=== PATIENT | male | born 2005 | race Caucasian/White ===

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

== ENCOUNTER 2023-05-03 08:34 | Emergency (ER) | payer MEDICAID ==
--- NOTE | 2023-05-03 09:20 | ED Physician Documentation ---
PD HPI ABD PAIN - Stated complaint Stated Complaint: ABD PX - Chief complaint Chief Complaint: Abd Pain - History obtained from History obtained from: Patient - History of Present Illness Timing - onset: Enter time (183), Last night Timing - duration: Days (1) Timing - details: Gradual onset, Still present Quality: Sharp, Pain Location: RUQ Improved by: Laying still Worsened by: Eating, Moving, Breathing, Position, Palpation Associated symptoms: No: Fever, Nausea, Vomiting, Diarrhea, Constipation Similar symptoms before: No diagnosis (one time 3 months ago) Recently seen: Not recently seen - Additional information Additional information: 17-year-old male indicates that last night about 6:30 at night he developed pain in the right upper quadrant that his was sharp and persisted. He had persistence of these symptoms and tenderness. He is come to the emergency [facility] this morning for evaluation. Review of Systems Constitutional: denies: Fever Eyes: denies: Decreased vision Ears: denies: Ear pain Nose: denies: Rhinorrhea / runny nose, Congestion Throat: denies: Sore throat Cardiac: denies: Chest pain / pressure, Palpitations Respiratory: denies: Dyspnea, Cough GI: reports: Abdominal Pain. denies: Nausea, Vomiting, Constipation, Diarrhea : denies: Dysuria, Frequency PD PAST MEDICAL HISTORY - Past Medical History Past Medical History: Yes Respiratory: Asthma - Past Surgical History Past Surgical History: No - Present Medications Home Medications: Ambulatory Orders Medication Instructions Recorded Confirmed No Known Home Medications 05/03/23 05/03/23 - Allergies Allergies/Adverse Reactions: Allergies Allergy/AdvReac Type Severity Reaction Status Date / Time No Known Drug Allergies Allergy Verified 05/03/23 08:46 - Social History Does the pt smoke?: No Smoking Status: Never smoker Does the pt drink ETOH?: No Does the pt have substance abuse?: No - Immunizations Immunizations are current?: Yes - POLST Patient has POLST: No PD ED PE NORMAL - Vitals Vital signs reviewed: Yes (hypertensive ) - General General: Alert and oriented X 3, No acute distress, Well developed/nourished - HEENT HEENT: Atraumatic, PERRL, EOMI - Neck Neck: Supple, no meningeal sign, C-Spine cleared by NEXUS criteria - Respiratory Respiratory: No respiratory distress - Abdomen Abdomen: Normal bowel sounds, Soft, Non distended, No organomegaly, Other (specific RUQ tenderness, well localized, + bhakta's, POCUS with normal appearing distended gall bladder that is tender with 3mm wall. ) - Back Back: No CVA TTP, No spinal TTP - Derm Derm: Normal color, Warm and dry, No rash - Extremities Extremities: No deformity, No edema - Neuro Neuro: Alert and oriented X 3, plastic duplicator 2-12 intact, No motor deficit, No sensory deficit, Normal speech Eye Opening: Spontaneous Motor: Obeys Commands Verbal: Oriented GCS Score: 15 - Psych Psych: Normal mood, Normal affect Results - Vitals Vitals: Vital Signs - 24 hr 05/03/23 05/03/23 08:42 10:46 Temperature 36.9 C Heart Rate 98 69 Respiratory 20 16 Rate Blood Pressure 158/83 H 128/69 O2 Saturation 100 99 Oxygen O2 Source Room air - Labs Labs: Laboratory Tests 05/03/23 05/03/23 09:27 09:27 WBC 9.3 RBC 5.17 Hgb 15.2 Hct 46.5 MCV 89.9 MCH 29.4 MCHC 32.7 RDW 12.2 Plt Count 373 MPV 9.8 Neut # (Auto) 4.9 Lymph # (Auto) 3.1 [place] # (Auto) 0.8 Eos # (Auto) 0.4 Baso # (Auto) 0.0 Absolute Nucleated RBC 0.00 Nucleated RBC % 0.0 Sodium 138 Potassium 4.2 Chloride 100 L Carbon Dioxide 30 Anion Gap 8.0 BUN 12 Creatinine 1.1 Estimated GFR (MDRD) 86 L Glucose 90 Calcium 9.8 Total Bilirubin 0.3 AST 37 ALT 33 Alkaline Phosphatase 70 Total Protein 7.3 Albumin 4.2 Globulin 3.1 Albumin/Globulin Ratio 1.4 Lipase 31 Procedures - Bedside sono Bedside sono by EMP: With use of POCUS the right upper quadrant is imaged the patient is thin and images well. The gallbladder appears clear without obvious stone the gallbladde r is distended sonographically tender and without fluid or gallbladder wall thickening gallbladder wall is measured at 3 mm. PD Medical Decision Making - ED course Complexity details: reviewed results, re-evaluated patient, considered differential, d/w patient Reviewed Lab Results: We reviewed a complete blood cell count showing normal white blood cell count normal hemoglobin hematocrit and platelets and normal indices chemistries were equally normal with normal electrolytes normal kidney and liver function.These laboratory studies did not contribute to a specific diagnosis. They are reassuring for a benign process. ED course: 17-year-old male presents with right upper quadrant abdominal pain he is tender on examination has a positive Bhakta sign when he arrives POCUS does not demonstrate any evidence of stones or gallbladder wall thickening or pericholecystic fluid. A formal ultrasound is obtained which shows a normal gallbladder.The patient has spontaneous resolution of his pain. No pain medication is administered. This patient was specifically tender in the right upper quadrant on examination and now has resolution of his symptoms. Departure - Departure Disposition: 01 Home, Self Care Clinical Impression: Abdominal pain Qualifiers: Abdominal location: right upper quadrant Qualified Code(s): R10.11 - Right uppe r quadrant pain Condition: Stable Instructions: ED Abdominal Pain Unkn Cause Male Follow-Up: [facility] [Provider Group] Comments: Tae, today we did not find any abnormality to your liver function tests on your blood work your blood counts were normal and the ultrasound done formally was also normal. The expectation is resolution of your symptoms. We have provided a follow up doctor as needed. Forms: PCP List Discharge Date/Time: 05/03/23 11:15
[2023-05-03 09:31] LABS: BASOPHILS % (AUTO) 0.4 %; EOSINOPHILS # (AUTO) 0.4 10^3/uL (0.0-0.7); EOSINOPHILS % (AUTO) 4.2 %; HCT - HEMATOCRIT 46.5 % (42.0-52.0); HGB - HEMOGLOBIN 15.2 g/dL (14.0-18.0); LYMPHOCYTES # (AUTO) 3.1 10^3/uL (1.5-3.5); LYMPHOCYTES % (AUTO) 33.6 %; MEAN CORPUSCULAR HEMOGLOBIN 29.4 pg (27.0-31.0); MEAN CORPUSCULAR HGB CONC 32.7 g/dL (32.0-36.0); MEAN CORPUSCULAR VOLUME 89.9 fL (80.0-94.0); MEAN PLATELET VOLUME 9.8 fL (7.4-11.4); MONOCYTES # (AUTO) 0.8 10^3/uL (0.0-1.0); MONOCYTES % (AUTO) 8.8 %; NEUTROPHILS # (AUTO) 4.9 10^3/uL (1.5-6.6); NEUTROPHILS % (AUTO) 52.6 %; PLT - PLATELET COUNT 373 10^3/uL (130-450); RED BLOOD COUNT 5.17 10^6/uL (4.70-6.10); RED CELL DISTRIBUTION WIDTH 12.2 % (12.0-15.0); WHITE BLOOD COUNT 9.3 x10^3/uL (4.8-10.8)
[2023-05-03 10:19] LABS: ALBUMIN 4.2 g/dL (3.2-5.5); ALBUMIN/GLOBULIN RATIO 1.4 (1.0-2.2); BILIRUBIN,TOTAL 0.3 mg/dL (0.2-1.0); CALCIUM 9.8 mg/dL (8.5-10.3); CREATININE 1.1 mg/dL (0.6-1.3); POTASSIUM 4.2 mmol/L (3.5-4.5); TOTAL PROTEIN 7.3 g/dL (6.4-8.9)
--- NOTE | 2023-05-03 11:17 | Ultrasound Report ---
PROCEDURE: Abdomen Limited INDICATIONS: RUQ pain, ttp well localized, + rodgers's,-POCUS TECHNIQUE: Real-time focused scanning was performed of the abdomen, with image documentation. COMPARISONS: None. FINDINGS: Liver: Liver is normal in size and homogeneous in echotexture. Gallbladder: Unremarkable. Biliary ducts: Intrahepatic bile ducts are non-dilated. Extrahepatic bile duct caliber measures 3 m m. Normal is 6-7 mm or less in diameter, or 10 mm or less post-cholecystectomy. The middle portal v ein measured 1.2 cm with hepatopedal flow Pancreas: Visualized portions of the pancreas are sonographically normal. Right kidney: Normal in size and echotexture. Right kidney measures 10.1 cm long. No hydronephrosis or nephrolithiasis. No solid masses. No complex renal cystic lesions which require follow-up. Aorta: Visualized aorta is normal in caliber at less than 3 cm. IVC: Intrahepatic inferior vena cava is patent. Miscellaneous: Small amount of perihepatic ascites. IMPRESSION: Normal gallbladder and biliary duct. The middle portal vein measures 1.2 cm which can be a sign of portal hypertension. Small volume of ascites. Reviewed by: Mac Jeffers MD on 05/03/2023 10:15 AM [facility] Approved by: Mac Jeffers MD on 05/03/2023 10:15 AM [facility] Station ID: [id number]
[2023-05-03 11:20] VITALS: BP 128/69; O2SAT 99
== END 2023-05-03 11:15 | disposition home or self-care (01) ==
LOC: ED 08:34
DX: R10.11 Right upper quadrant pain (principal)
CPT/HCPCS: 36415; 80053; 83690; 85025; 99283; 99284

== ENCOUNTER 2023-05-08 11:49 | Outpatient (CLI) | payer MEDICAID ==
--- NOTE | 2023-05-08 14:21 | XRAY Report ---
PROCEDURE: Lumbar Spine 4V INDICATIONS: LOW BACK PAIN TECHNIQUE: 4 views of the lumbar spine were acquired. COMPARISON: Lumbar spine x-ray 06/15/2019 FINDINGS: Bones: 5 [id number] vertebrae are present. There is normal bony alignment. There appears to be a fracture of the anterior superior endplate of L4 which is not seen on prior x-ray 06/15/2019. No ve rtebral body compression fractures. No suspicious bony lesions. No definite pars interarticularis d efects. Soft tissues: Overlying bowel gas pattern is normal. No suspicious soft tissue calcifications. IMPRESSION: Fracture fragment adjacent to the anterior superior endplate of L4 which is not seen on prior x-ray. Correlate with history of trauma. No significant degenerative changes. Reviewed by: Donte Liu MD on 05/08/2023 2:19 PM PST Approved by: Donte Liu MD on 05/08/2023 2:19 PM PST Station ID: [id number]
== END 2023-05-08 11:50 | disposition home or self-care (01) ==
LOC: DI 11:49
PROVIDERS: ATTEND Nurse Practitioner Family
DX: M54.50 Low back pain, unspecified (principal); R93.7 Abnormal findings on diagnostic imaging of other parts of musculoskeletal system

== ENCOUNTER 2023-07-06 10:14 | Outpatient (CLI) | payer MEDICAID ==
--- NOTE | 2023-07-06 14:30 | MRI Report ---
PROCEDURE: Lumbar Spine WO INDICATIONS: HIST OF VERTEBRAL FX TECHNIQUE: Noncontrast sagittal T1 spin echo and T2 fast echo, sagittal STIR, axial T1 and T2 fast spin echo thr ough the lumbar spine. In cases with scoliosis, additional coronal T2 fast spin echo may be performe d. COMPARISON: 05/08/2023. FINDINGS: Image quality: Mild motion artifact. Alignment and Curvature: There is normal bony alignment. Bone Marrow: Again seen small fracture fragment adjacent to the anterior superior endplate of L4 with out associated edema. Marrow is of normal overall signal. No acute vertebral body compression fractu res. Spinal Cord: Conus medullaris terminates at the L1 level. Visualized cord demonstrates normal signa l and size. Paraspinous Soft Tissues: No paravertebral masses. T12-L1: Normal in appearance. L1-L2: Normal in appearance. L2-L3: Normal in appearance. L3-L4: Disc desiccation and height loss. Minimal disc bulge. Facet arthropathy and thickened ligame nta flava. Mild central canal stenosis. Mild bilateral neuroforaminal stenosis. L4-L5: Mild diffuse disc bulge. Facet arthropathy. Mild central canal stenosis. No neuroforaminal s tenosis. L5-S1: Facet arthropathy. No central canal or neuroforaminal stenosis. IMPRESSION: 1.Mild degenerative changes of the lumbar spine as described above. 2.Again seen chronic fracture deformity of the anterior superior endplate of L4. Reviewed by: Donte Liu MD on 07/06/2023 2:28 PM PDT Approved by: Donte Liu MD on 07/06/2023 2:28 PM PDT Station ID: [id number]
== END 2023-07-06 10:15 | disposition home or self-care (01) ==
LOC: DI 10:14
PROVIDERS: ATTEND Nurse Practitioner Family
DX: M47.816 Spondylosis without myelopathy or radiculopathy, lumbar region (principal); Z87.312 Personal history of (healed) stress fracture

== ENCOUNTER 2023-11-05 04:04 | Emergency (ER) | payer MEDICAID ==
[2023-11-05 04:32] LABS: BASOPHILS % (AUTO) 0.7 %; EOSINOPHILS % (AUTO) 2.5 %; HCT - HEMATOCRIT 45.5 % (42.0-52.0); HGB - HEMOGLOBIN 15.6 g/dL (14.0-18.0); LYMPHOCYTES % (AUTO) 51.1 %; MEAN CORPUSCULAR HEMOGLOBIN 30.4 pg (27.0-31.0); MEAN CORPUSCULAR HGB CONC 34.3 g/dL (32.0-36.0); MEAN CORPUSCULAR VOLUME 88.5 fL (80.0-94.0); MEAN PLATELET VOLUME 9.6 fL (7.4-11.4); MONOCYTES % (AUTO) 7.3 %; NEUTROPHILS % (AUTO) 38.2 %; PLT - PLATELET COUNT 333 10^3/uL (130-450); RED BLOOD COUNT 5.14 10^6/uL (4.70-6.10); RED CELL DISTRIBUTION WIDTH 11.6 % (12.0-15.0); WHITE BLOOD COUNT 10.5 x10^3/uL (4.8-10.8)
[2023-11-05 04:33] LABS: BILIRUBIN,URINE NEGATIVE (NEGATIVE); GLUCOSE, URINE (UA) NEGATIVE (NEGATIVE); KETONES,URINE (UA) NEGATIVE (NEGATIVE); LEUKOCYTE ESTERASE, URINE NEGATIVE (NEGATIVE); NITRITE,URINE NEGATIVE (NEGATIVE); OCCULT BLOOD,URINE NEGATIVE (NEGATIVE); PH,URINE 6.5 PH (5.0-7.5); PROTEIN,URINE NEGATIVE (NEGATIVE); UROBILINOGEN,URINE 0.2 (NORMAL) E.U./dL (NORMAL)
--- NOTE | 2023-11-05 04:33 | ED Physician Documentation ---
History of Present Illness - Stated complaint Stated Complaint: ABD PX - Chief complaint Chief Complaint: Abd Pain - History obtained from History obtained from: Patient - Additonal information Additional information: 17yM previously healthy p/w RUQ pain at breakfast yesterday, recurring throughout the day and into the early hours of this morning with associated nausea but no vomiting, fever/chills, diarrhea, or urinary sx. pain radiates to the back. patient had a normal workup for similar symptoms a few months ago, including ultrasound RUQ. PD PAST MEDICAL HISTORY - Past Medical History Past Medical History: Yes Respiratory: Asthma - Past Surgical History Past Surgical History: Yes - Present Medications Home Medications: Ambulatory Orders Medication Instructions Recorded Confirmed Ondansetron Odt [Zofran Odt] 4 mg TL Q6H PRN #10 tablet 11/05/23 - Allergies Allergies/Adverse Reactions: Allergies Allergy/AdvReac Type Severity Reaction Status Date / Time No Known Drug Allergies Allergy Verified 11/05/23 04:16 - Social History Does the pt smoke?: No Smoking Status: Never smoker Does the pt drink ETOH?: No Does the pt have substance abuse?: No - Immunizations Immunizations are current?: Yes - POLST Patient has POLST: No PD ED PE NORMAL - Vitals Vital signs reviewed: Yes - General General: Alert and oriented X 3, No acute distress, Well developed/nourished - HEENT HEENT: Atraumatic, PERRL, EOMI, Moist mucous membranes, Pharynx benign - Neck Neck: Supple, no meningeal sign - Cardiac Cardiac: RRR - Respiratory Respiratory: No respiratory distress, Clear bilaterally - Abdomen Abdomen: Non tender, Non distended - Back Back: No CVA TTP - Derm Derm: Normal color, Warm and dry Results - Vitals Vitals: Vital Signs - 24 hr 11/05/23 04:13 Temperature 36.4 C L Heart Rate 66 Respiratory 16 Rate Blood Pressure 124/71 O2 Saturation 100 Oxygen O2 Source Room air PD Medical Decision Making - ED course ED course: 17yM p/w RUQ pain radiating to the back X 1 day with associated nausea, improved s/p IV toradol and zofran. Labwork looks benign and his exam is good. Plan outpatient follow up for repeat RUQ ultrasound. no u/s available tonight but I am confident he does not have s/s of cholecystitis or other emergent pathology. return precautions given. Departure - Departure Clinical Impression: Abdominal pain, Nausea Condition: Stable Instructions: Abdominal Pain Prescriptions: Ondansetron Odt [Zofran Odt] 4 mg TL Q6H PRN #10 tablet PRN Reason: Nausea / Vomiting Comments: You were seen in the emergency department for medical evaluation. Your labwork was normal. Prescription for anti-nausea medicine sent to [facility]. Please follow-up with a primary care provider and return to the emergency department if you have any new or worsening symptoms or other concerns.
[2023-11-05 04:37] LABS: ABNORMAL LYMPHS % (MANUAL) 0 %; BAND NEUTROPHILS % (MANUAL) 0 %; CLARITY,URINE CLEAR (CLEAR)
[2023-11-05] MEDS: ONDANSETRON 4 MG/2 ML VIAL IVP STA (04:37)
[2023-11-05] MEDS: KETOROLAC 15 MG/ML VIAL IVP STA (04:44)
[2023-11-05 04:58] LABS: BASOPHILS # (MANUAL) 0.1 10^3/uL (0-0.1); BASOPHILS % (MANUAL) 1 %; DIFFERENTIAL COMMENT MANUAL DIFFERENTIAL; EOSINOPHILS # (MANUAL) 0.4 10^3/uL (0-0.7); LYMPHOCYTES # (MANUAL) 3.5 10^3/uL (1.5-3.5); LYMPHOCYTES % (MANUAL) 33 %; MONOCYTES # (MANUAL) 1.1 10^3/uL (0.0-1.0); NEUTROPHILS # (MANUAL) 5.5 10^3/uL (1.5-6.6); PLATELET ESTIMATE, MANUAL NORMAL (130-450,000) (NORMAL); RBC MORPHOLOGY (MULTIPLE) NORMAL APPEARANCE (NORMAL)
[2023-11-05 04:59] LABS: ALBUMIN 4.8 g/dL (3.2-5.5); ALBUMIN/GLOBULIN RATIO 1.4 (1.0-2.2); BILIRUBIN,TOTAL 0.3 mg/dL (0.2-1.0); CREATININE 0.9 mg/dL (0.6-1.3); POTASSIUM 4.2 mmol/L (3.5-4.5); TOTAL PROTEIN 8.3 g/dL (6.4-8.9)
[2023-11-05 05:33] VITALS: BP 109/66; O2SAT 100
== END 2023-11-05 05:25 | disposition home or self-care (01) ==
LOC: ED 04:04
DX: R10.11 Right upper quadrant pain (principal); R01.1 Cardiac murmur, unspecified
CPT/HCPCS: 36415; 80053; 81001; 81003; 83690; 85025; 87086; 96374; 96375; 99283